=== PATIENT | male | born 1980 | race Caucasian/White ===

== ENCOUNTER 2017-10-12 01:39 | Emergency (ER) | payer OTHER ==
[~2017-10-12] VITALS: Ht 175.3 cm; Wt 73.9 kg
[~2017-10-12 01:39] MED LIST: AMBIEN 10 MG TA10 MG PO; NORCO 5-325 TA1 EACH PO; ZOLOFT100 MG PO
[2017-10-12 02:04] LABS: ABSOLUTE NEUTROPHILS 4.2 thou/uL (1.4-8.2); BASOPHILS 0.6 % (0.0-2.0); EOSINOPHILS 1.1 % (0.0-3.0); HEMATOCRIT 46.5 % (42.0-52.0); HEMOGLOBIN 16.4 gm/dL (14.0-18.0); MCH 32.3 pg (26.0-34.0); MCHC 35.2 g/dL (28.0-37.0); MCV 91.8 fL (80.0-100.0); MONOCYTES 8.9 % (1.0-8.0); PLATELET COUNT 226 thou/uL (150-400); POLYS 47.4 % (36.0-66.0); RBC 5.07 mil/uL (4.50-6.00); WBC 8.9 thou/uL (4.0-11.0)
[2017-10-12 02:07] LABS: CALCIUM 9.3 mg/dL (8.5-10.1); CREATININE 1.2 mg/dL (0.7-1.3); POTASSIUM 3.1 mmol/L (3.5-5.1)
[2017-10-12 02:13] LABS: ALBUMIN 4.7 g/dL (3.4-5.0); TOTAL BILIRUBIN 0.4 mg/dL (<0.1-1.0); TOTAL PROTEIN 7.8 g/dL (6.4-8.2)
[2017-10-12 03:02] LABS: URINE BILIRUBIN NEGATIVE (Negative); URINE BLOOD 3+ (Negative); URINE CLARITY CLEAR; URINE COLOR YELLOW; URINE GLUCOSE-RANDOM* NEGATIVE (Negative); URINE KETONES NEGATIVE (Negative); URINE LEUKOCYTES-REFLEX NEGATIVE (Negative); URINE NITRITE-REFLEX NEGATIVE (Negative); URINE PROTEIN (DIPSTICK) NEGATIVE (Negative); URINE UROBILINOGEN 0.2 E.U./dl (0.2-1.0)
[2017-10-12 03:48] LABS: AMORPHOUS PHOSPHATES Many /LPF (None Seen); BACTERIA-REFLEX None Seen /HPF (None Seen); CASTS None Seen /LPF (None Seen); SQUAMOUS 0-3 Few /LPF (0-3); URINE RBC 3-10 Few /HPF (0-2); URINE WBC-REFLEX None Seen /HPF (0-5)
[2017-10-12] MEDS ORDERED: FLOMAX0.4 MG PO (04:13)
[2017-10-12] MEDS ORDERED: NORCO 7.5-3251 EACH PO (04:13)
[2017-10-12] MEDS ORDERED: IBUPROFEN 600600 M1 PO (04:13)
[2017-10-12] MEDS ORDERED: SENNA-DOCUSATE1 EACH PO (04:13)
[2017-10-12] MEDS ORDERED: ZOFRAN ODT4 MG PO (04:13)
[2017-11-29] MEDS ORDERED: MOBIC15 MG PO (08:11)
== END 2017-10-12 04:32 | disposition home or self-care (01) ==
LOC: ER 01:39
PROVIDERS: Emergency Medicine
DX: N20.1 Calculus of ureter (principal)